=== PATIENT | female | born 1990 | race Two or more races ===

== ENCOUNTER 2017-02-14 21:26 | Emergency (ER) | payer SELFPAY ==
[~2017-02-14] VITALS: Ht 160 cm; Wt 79.4 kg
[2017-02-14 22:18] LABS: BASO # 0.1 x10^3/uL (0.0-0.2); BASO % 1 % (0-3); EOS % 1 % (0-3); HEMATOCRIT 39.2 % (36.0-47.0); HEMOGLOBIN 13.2 g/dL (12.0-15.5); LYMPH # 2.7 x10^3/uL (1.0-4.8); LYMPH % 22 % (24-48); MEAN CORPUSCULAR HEMOGLOBIN 31 pg (25-35); MEAN CORPUSCULAR HGB CONC 34 g/dL (31-37); MEAN CORPUSCULAR VOLUME 91 fL (79-100); MONO % 7 % (0-9); NEUT % 70 % (31-73); PLATELET COUNT 330 x10^3/uL (140-400); RED CELL DISTRIBUTION WIDTH 12.9 % (11.5-14.5); WHITE BLOOD COUNT 12.5 x10^3/uL (4.0-11.0)
[2017-02-14 22:27] LABS: CALCIUM 8.9 mg/dL (8.5-10.1); CREATININE 0.8 mg/dL (0.6-1.0); POTASSIUM 3.7 mmol/L (3.5-5.1)
[2017-02-14] MEDS ORDERED: IV NORMAL SALINE 1000ML BAG 1,000 ML IV ONE (22:30)
[2017-02-14] MEDS ORDERED: METOCLOPRAMIDE HCL 10 MG/2 ML VIAL. IV ONE (22:30)
[2017-02-14 22:40] VITALS: BP 113/71
--- NOTE | 2017-02-14 22:58 | RAD ---
EXAM: Obstetrics sonogram. HISTORY: Pain. TECHNIQUE: Sonographic imaging of the pelvis was performed. COMPARISON: None. FINDINGS: The uterus measures 9.6 x 5.6 x 4.4 cm. The endometrial stripe measures 12 abdomen thickness. No intrauterine gestational sac is seen. The right ovary measures 4.1 x 3.7 x 2.9 cm. The left ovary measures 2.7 x 1.9 x 1.1 cm. There is normal blood flow within both ovaries. There are multiple ovarian follicles. There is a complex right ovarian cyst measuring 2.1 cm. There is a simple right ovarian follicular cyst measuring 1.5 cm. There is no pelvic free fluid. IMPRESSION: 1. No evidence of an intrauterine gestational sac. Correlate with beta hCG levels. If the beta-hCG levels are within limits for expected sonographic identification of a gestational sac, the possibility of an ectopic gestation is not excluded. Alternatively, if the beta-hCG levels are low but increasing appropriately, the absence of a gestational sac on the current exam is likely due to relatively early gestation. 2. 2.1 cm complex right ovarian cyst and 1.5 cm simple appearing right ovarian follicular cyst. Electronically signed by: Dot Stovall MD (02/14/2017 10:55 PM) [facility]
[2017-02-14 23:13] LABS: BILIRUBIN,URINE NEGATIVE (NEG); GLUCOSE,URINE NEGATIVE (NEG); NITRITE,URINE NEGATIVE (NEG); PH,URINE 7.5; PROTEIN,URINE NEGATIVE (NEG-TRACE)
[2017-02-14 23:20] LABS: BACTERIA,URINE 0 /HPF (0-FEW); RBC,URINE OCC /HPF (0-2); SQUAMOUS EPITHELIAL CELL,UR MOD /LPF; WBC,URINE 0 /HPF (0-4)
--- NOTE | 2017-02-14 23:25 | PHYS DOC ---
Past Medical History Past Medical History: No Pertinent History Past Surgical History: No Surgical History Alcohol Use: Occasionally Drug Use: None Adult General Chief Complaint Chief Complaint: ABDOMINAL PAIN IN HPI HPI Patient is a 26 year old female who presents with abdominal pain and . Patient is at 4w3d by dates, positive test at home yesterday. She reports onset of cramping lower abdominal pain yesterday associated with vaginal discharge. Was nauseated without vomiting. Denies fevers or chills, diarrhea or constipation, dysuria or hematuria, vaginal bleeding. Denies concern for sexually transmitted infection. She does not have an OB physician at this time. She is Lithuanian-speaking; history obtained with assistance from Lithuanian language line fur joiner. Review of Systems Review of Systems Constitutional: Denies fever or chills HENT: Denies nasal congestion or sore throat Respiratory: Denies cough or shortness of breath Cardiovascular: Denies chest pain or edema GI: Reports abdominal pain, nausea, vomiting, denies bloody stools or diarrhea : Denies dysuria or hematuria Musculoskeletal: Denies back pain or joint pain Integument: Denies rash or skin lesions Neurologic: Denies headache All other systems were reviewed and found to be within normal limits, except as documented in this note. Current Medications Current Medications Current Medications Medications (Trade) Dose Ordered Sig/Jayda Start Time Stop Time Status Last Admin Dose Admin Metoclopramide HCl (Reglan Vial) 10 mg 1X ONCE 02/14/17 22:30 02/14/17 22:31 DC 02/14/17 22:28 10 MG Sodium Chloride 1,000 ml @ 1,000 mls/hr 1X ONCE 02/14/17 22:30 02/14/17 23:29 DC 02/14/17 22:28 1,000 MLS/HR Allergies Allergies Allergies Coded Allergies Type Severity Reaction Last Updated Verified No Known Drug Allergies 02/14/17 No Physical Exam Physical Exam Constitutional: obese, no acute distress, non-toxic appearance. HENT: Normocephalic, atraumatic, bilateral external ears normal, oropharynx moist, nose normal. Eyes: conjunctiva normal, no discharge. Neck: supple, no stridor. Cardiovascular: RRR, no murmurs, no edema. Lungs & Thorax: LCTAB, no wheezing, no respiratory distress. Abdomen: soft, mild suprapubic tenderness without rebound/guarding, no masses or pulsatile masses, nondistended. : normal appearing female external genitalia, normal cervix with closed os, small amount of white discharge in vaginal vault, no CMT/adnexal tenderness. Skin: Warm, dry, no erythema, no rash. Back: No CVA tenderness. Extremities: No tenderness, no edema. Neurologic: Alert and oriented X 3, no focal deficits noted. Psychologic: Affect normal, judgement normal, mood normal. Current Patient Data Vital Signs Vital Signs Date Time Temp Pulse Resp B/P (MAP) Pulse Ox O2 Delivery O2 Flow Rate FiO2 02/14/17 22:40 106 113/71 (85) 97 Room Air 02/14/17 21:40 98.8 20 98.8 Lab Values Laboratory Tests Test 02/14/17 21:28 02/14/17 21:57 02/14/17 22:05 Urine Collection Type Unknown Urine Color Yellow Urine Clarity Clear Urine pH 7.5 Urine Specific [place] 1.020 Urine Protein Negative mg/dL (NEG-TRACE) Urine Glucose (UA) Negative mg/dL (NEG) Urine Ketones (Stick) Negative mg/dL (NEG) Urine Blood Negative (NEG) Urine Nitrite Negative (NEG) Urine Bilirubin Negative (NEG) Urine Urobilinogen Dipstick 1.0 mg/dL (0.2 mg/dL) Urine Leukocyte Esterase Negative (NEG) Urine RBC Occ /HPF (0-2) Urine WBC 0 /HPF (0-4) Urine Squamous Epithelial Cells Mod /LPF Urine Bacteria 0 /HPF (0-FEW) POC Urine HCG, Qualitative Hcg positive (Negative) White Blood Count 12.5 x10^3/uL (4.0-11.0) H Red Blood Count 4.30 x10^6/uL (3.50-5.40) Hemoglobin 13.2 g/dL (12.0-15.5) Hematocrit 39.2 % (36.0-47.0) Mean Corpuscular Volume 91 fL (79-100) Mean Corpuscular Hemoglobin 31 pg (25-35) Mean Corpuscular Hemoglobin Concent 34 g/dL (31-37) Red Cell Distribution Width 12.9 % (11.5-14.5) Platelet Count 330 x10^3/uL (140-400) Neutrophils (%) (Auto) 70 % (31-73) Lymphocytes (%) (Auto) 22 % (24-48) L Monocytes (%) (Auto) 7 % (0-9) Eosinophils (%) (Auto) 1 % (0-3) Basophils (%) (Auto) 1 % (0-3) Neutrophils # (Auto) 8.7 x10^3uL (1.8-7.7) H Lymphocytes # (Auto) 2.7 x10^3/uL (1.0-4.8) Monocytes # (Auto) 0.8 x10^3/uL (0.0-1.1) Eosinophils # (Auto) 0.1 x10^3/uL (0.0-0.7) Basophils # (Auto) 0.1 x10^3/uL (0.0-0.2) Maternal Serum HCG Beta Subunit 160 mIU/mL (0-5) H Sodium Level 136 mmol/L (136-145) Potassium Level 3.7 mmol/L (3.5-5.1) Chloride Level 103 mmol/L (98-107) Carbon Dioxide Level 25 mmol/L (21-32) Anion Gap 8 (6-14) Blood Urea Nitrogen 14 mg/dL (7-20) Creatinine 0.8 mg/dL (0.6-1.0) Estimated GFR (Cockcroft-Gault) 86.0 Glucose Level 106 mg/dL (70-99) H Calcium Level 8.9 mg/dL (8.5-10.1) Laboratory Tests 02/14/17 22:05 Laboratory Tests 02/14/17 22:05 Microbiology 02/14/17 Wet Prep - Final, Complete EKG EKG [] Radiology/Procedures Radiology/Procedures PROCEDURE: OB < 14 WKS EXAM: Obstetrics sonogram. HISTORY: Pain. TECHNIQUE: Sonographic imaging of the pelvis was performed. COMPARISON: None. FINDINGS: The uterus measures 9.6 x 5.6 x 4.4 cm. The endometrial stripe measures 12 abdomen thickness. No intrauterine gestational sac is seen. The right ovary measures 4.1 x 3.7 x 2.9 cm. The left ovary measures 2.7 x 1.9 x 1.1 cm. There is normal blood flow within both ovaries. There are multiple ovarian follicles. There is a complex right ovarian cyst measuring 2.1 cm. There is a simple right ovarian follicular cyst measuring 1.5 cm. There is no pelvic free fluid. IMPRESSION: 1. No evidence of an intrauterine gestational sac. Correlate with beta hCG levels. If the beta-hCG levels are within limits for expected sonographic identification of a gestational sac, the possibility of an ectopic gestation is not excluded. Alternatively, if the beta-hCG levels are low but increasing appropriately, the absence of a gestational sac on the current exam is likely due to relatively early gestation. 2. 2.1 cm complex right ovarian cyst and 1.5 cm simple appearing right ovarian follicular cyst. Electronically signed by: Dot Mata MD (02/14/2017 10:55 PM) [facility] DICTATED and SIGNED BY: DOT MATA MD DATE: 02/14/172252[] Course & Med Decision Making Course & Med Decision Making Pertinent Labs and Imaging studies reviewed. (See chart for details) The patient presents with abdominal pain in very early . No reported bleeding, no blood seen on pelvic exam. Beta hCG is quite low, no gestational sac seen on ultrasound but also no evidence of ectopic . Discussed results with the patient at length via the fur joiner. Recommend follow-up with Dr. Gonzalez in the OB clinic in 2 days for repeat labs and possible repeat ultrasound. She is aware of the ectopic could be life-threatening condition and is very important to follow-up for additional evaluation as this condition cannot definitely be ruled out at this time. Instructed to maintain pelvic rest, take Tylenol as needed for pain. Return to the emergency department for high fever, severe pain, uncontrolled vomiting, vaginal hemorrhage requiring greater than 1 pad per hour, any otherwise worsening condition. Discharged home in stable condition. [] Dragon Disclaimer Dragon Disclaimer This electronic medical record was generated, in whole or in part, using a voice recognition dictation system. Departure Departure Impression: Primary Impression: Abdominal pain affecting Disposition: HOME, SELF-CARE Condition: STABLE Referrals: NO PCP (PCP) SMITA GONZALEZ Jr, MD Patient Instructions: Abdominal Pain During , [id number] Additional Instructions: You were seen in the emergency department today for abdominal pain in early . Your ultrasound did not yet show the baby or the gestational sac. Commonly this is because it is too early to see the baby. When we cannot see any sign of the baby in your uterus, there is a possibility that you could have an ectopic which means that the baby is developing somewhere besides your uterus which can be life-threatening. It is very very important to follow- up in the OB clinic in 2 days to have labs and possibly ultrasound repeated. Please make an appointment to be seen by Dr. Gonzalez in the OB clinic. You will need to tell them that you were seen in the ER today & you need to follow-up in 2 days. In the meantime, rest, drink fluids, take Tylenol for pain. Come back for high fever, severe pain, uncontrolled vomiting, heavy bleeding requiring more than 1 pad per hour, any otherwise worsening condition. WALTER JANE MD Feb 14, 2017 23:25
== END 2017-02-14 23:39 | disposition home or self-care (01) ==
LOC: ER 21:26
DX: O34.81 Maternal care for other abnormalities of pelvic organs, first trimester (principal); N83.201 Unspecified ovarian cyst, right side; Z3A.01 Less than 8 weeks gestation of pregnancy
CPT/HCPCS: 36415; 76801; 80048; 81001; 81025; 84702; 85025; 87491; 87591; 96361; 96374; 99285; J2765; J7030; Q0111

== ENCOUNTER 2017-09-30 14:35 | Observation (INO) | payer SELFPAY ==
[2017-09-30 15:20] LABS: BILIRUBIN,URINE NEGATIVE (NEG); CLARITY,URINE CLEAR; COLOR,URINE YELLOW; GLUCOSE,URINE NEGATIVE (NEG); NITRITE,URINE NEGATIVE (NEG); PROTEIN,URINE NEGATIVE (NEG-TRACE); UROBILINOGEN,URINE 0.2 mg/dL (0.2 mg/dL)
[2017-09-30] MEDS: hydrOXYzine IM 50 MG/ML VIAL IM (15:58)
== END 2017-09-30 16:10 | disposition home or self-care (01) ==
LOC: 3 SO LND 14:35
DX: O26.893 Other specified pregnancy related conditions, third trimester (principal); R10.9 Unspecified abdominal pain; Z3A.36 36 weeks gestation of pregnancy
CPT/HCPCS: 81003; 96372; G0378; G0379; J3410

== ENCOUNTER 2018-03-14 21:45 | Emergency (ER) | payer SELFPAY ==
[~2018-03-14] VITALS: Ht 157.5 cm; Wt 86.2 kg
[~2018-03-14 21:45] MED LIST: IBUP800T19 PO
[2018-03-14 22:33] LABS: BILIRUBIN,URINE NEGATIVE (NEG); CLARITY,URINE CLEAR; COLOR,URINE YELLOW; NITRITE,URINE NEGATIVE (NEG); PROTEIN,URINE NEGATIVE (NEG-TRACE)
[2018-03-14 22:38] LABS: BACTERIA,URINE FEW /HPF (0-FEW); RBC,URINE OCC /HPF (0-2); SQUAMOUS EPITHELIAL CELL,UR FEW /LPF; WBC,URINE RARE /HPF (0-4)
[2018-03-14 22:39] LABS: AMORPHOUS SEDIMENT,UR PRESENT /HPF
[2018-03-14 22:42] LABS: BASO % 0 % (0-3); EOS # 0.2 x10^3/uL (0.0-0.7); EOS % 2 % (0-3); LYMPH # 2.2 x10^3/uL (1.0-4.8); LYMPH % 22 % (24-48); MEAN CORPUSCULAR HEMOGLOBIN 32 pg (25-35); MEAN CORPUSCULAR HGB CONC 34 g/dL (31-37); MEAN CORPUSCULAR VOLUME 92 fL (79-100); MONO # 0.7 x10^3/uL (0.0-1.1); MONO % 7 % (0-9); NEUT # 6.6 x10^3uL (1.8-7.7); NEUT % 68 % (31-73); PLATELET COUNT 294 x10^3/uL (140-400); RED BLOOD COUNT 4.12 x10^6/uL (3.50-5.40); WHITE BLOOD COUNT 9.7 x10^3/uL (4.0-11.0)
--- NOTE | 2018-03-14 22:46 | PHYS DOC ---
Past Medical History Past Medical History: No Pertinent History Past Surgical History: No Surgical History Alcohol Use: None Drug Use: None Adult General Chief Complaint Chief Complaint: VAGINAL BLEEDING HPI HPI Patient is a 27 year old female who presents with vaginal bleeding. She is noted approximately 3 days of lower abdominal pain and cramping. Had some spotting this evening. Less than 1 tampon or pad's worth. Patient is approximately 12 weeks having her last menstrual period on 12/15/2017. Patient's last /delivery was 10/21/2017. She was A+ at that time for her blood type. Nothing makes the pain or the bleeding any better or worse. Pain is mild. No significant relief with Tylenol. Patient is pending her first TYPE PHOTOGRAPHY SUPERVISOR appointment. Patient is 4 para 3 [] Review of Systems Review of Systems Constitutional: Denies fever or chills [] Eyes: Denies change in visual acuity, redness, or eye pain [] HENT: Denies nasal congestion or sore throat [] Respiratory: Denies cough or shortness of breath [] Cardiovascular: No chest pain or palpitations[] GI: Denies nausea, vomiting, bloody stools or diarrhea [] : Denies dysuria or hematuria [] Musculoskeletal: Denies back pain or joint pain [] Integument: Denies rash or skin lesions [] Neurologic: Denies headache, focal weakness or sensory changes [] Endocrine: Denies polyuria or polydipsia [] All other systems were reviewed and found to be within normal limits, except as documented in this note. Allergies Allergies Allergies Coded Allergies Type Severity Reaction Last Updated Verified No Known Drug Allergies 02/14/17 No Physical Exam Physical Exam Constitutional: Well developed, well nourished, no acute distress, non-toxic appearance. [] HENT: Normocephalic, atraumatic, bilateral external ears normal, oropharynx moist, no oral exudates, nose normal. [] Eyes: PERRLA, EOMI, conjunctiva normal, no discharge. [] Neck: Normal range of motion, no tenderness, supple, no stridor. [] Cardiovascular:Heart rate regular rhythm, no murmur [] Lungs & Thorax: Bilateral breath sounds clear to auscultation [] Abdomen: Bowel sounds normal, soft, no tenderness, no masses, no pulsatile masses. Health exam: External genitalia: Normal. Vaginal vault: Dark blood in the vault , small amount. No other discharge noted. Cervix:parous os, no CMT, no active bleeding[] Skin: Warm, dry, no erythema, no rash. No bruising [] Back: No tenderness, no CVA tenderness. [] Extremities: No tenderness, no cyanosis, no clubbing, ROM intact, no edema. [] Neurologic: Alert and oriented X 3, normal motor function, normal sensory function, no focal deficits noted. [] Psychologic: Affect normal, judgement normal, mood normal. [] Current Patient Data Vital Signs Vital Signs Date Time Temp Pulse Resp B/P (MAP) Pulse Ox O2 Delivery O2 Flow Rate FiO2 03/14/18 22:15 98.6 100 18 144/64 (90) 99 Room Air 98.6 Lab Values Laboratory Tests Test 03/14/18 22:05 03/14/18 22:14 03/14/18 22:35 Urine Collection Type Unknown Urine Color Yellow Urine Clarity Clear Urine pH 7.0 Urine Specific [place] 1.025 Urine Protein Negative mg/dL (NEG-TRACE) Urine Glucose (UA) Negative mg/dL (NEG) Urine Ketones (Stick) Negative mg/dL (NEG) Urine Blood Trace (NEG) Urine Nitrite Negative (NEG) Urine Bilirubin Negative (NEG) Urine Urobilinogen Dipstick 1.0 mg/dL (0.2 mg/dL) Urine Leukocyte Esterase Negative (NEG) Urine RBC Occ /HPF (0-2) Urine WBC Rare /HPF (0-4) Urine Squamous Epithelial Cells Few /LPF Urine Calcium Phosphate Crystals /HPF Urine Amorphous Sediment Present /HPF Urine Bacteria Few /HPF (0-FEW) Urine Mucus Slight /LPF POC Urine HCG, Qualitative Hcg positive (Negative) White Blood Count 9.7 x10^3/uL (4.0-11.0) Red Blood Count 4.12 x10^6/uL (3.50-5.40) Hemoglobin 13.0 g/dL (12.0-15.5) Hematocrit 38.0 % (36.0-47.0) Mean Corpuscular Volume 92 fL (79-100) Mean Corpuscular Hemoglobin 32 pg (25-35) Mean Corpuscular Hemoglobin Concent 34 g/dL (31-37) Red Cell Distribution Width 12.0 % (11.5-14.5) Platelet Count 294 x10^3/uL (140-400) Neutrophils (%) (Auto) 68 % (31-73) Lymphocytes (%) (Auto) 22 % (24-48) L Monocytes (%) (Auto) 7 % (0-9) Eosinophils (%) (Auto) 2 % (0-3) Basophils (%) (Auto) 0 % (0-3) Neutrophils # (Auto) 6.6 x10^3uL (1.8-7.7) Lymphocytes # (Auto) 2.2 x10^3/uL (1.0-4.8) Monocytes # (Auto) 0.7 x10^3/uL (0.0-1.1) Eosinophils # (Auto) 0.2 x10^3/uL (0.0-0.7) Basophils # (Auto) 0.0 x10^3/uL (0.0-0.2) Prothrombin Time 12.9 SEC (11.7-14.0) Prothrombin Time INR 1.0 (0.8-1.1) Maternal Serum HCG Beta Subunit 07263 mIU/mL (0-5) H Sodium Level 138 mmol/L (136-145) Potassium Level 3.7 mmol/L (3.5-5.1) Chloride Level 101 mmol/L (98-107) Carbon Dioxide Level 25 mmol/L (21-32) Anion Gap 12 (6-14) Blood Urea Nitrogen 7 mg/dL (7-20) Creatinine 0.9 mg/dL (0.6-1.0) Estimated GFR (Cockcroft-Gault) 74.6 BUN/Creatinine Ratio 8 (6-20) Glucose Level 95 mg/dL (70-99) Calcium Level 9.3 mg/dL (8.5-10.1) Total Bilirubin 0.2 mg/dL (0.2-1.0) Aspartate Amino Transferase (AST) 16 U/L (15-37) Alanine Aminotransferase (ALT) 20 U/L (14-59) Alkaline Phosphatase 127 U/L (46-116) H Total Protein 7.9 g/dL (6.4-8.2) Albumin 3.0 g/dL (3.4-5.0) L Albumin/Globulin Ratio 0.6 (1.0-1.7) L Laboratory Tests 12/24/18 22:35 Laboratory Tests 03/14/18 22:35 Microbiology 03/14/18 Wet Prep - Final, Complete EKG EKG [] Radiology/Procedures Radiology/Procedures Pelvic Ultrasound FINDINGS: Uterus: 110 x 78 x 77 mm. Intrauterine gestational sac is identified with a pole with a positive heartbeat of 168 bpm. Too early in to adequately assess placenta. Gestational sac unremarkable in appearance. Right Ovary: 29 x 27 x 25 mm. Left Ovary: 28 x 18 x 18 mm. Vascular flow identified to bilateral ovaries. IMPRESSION: 1. Intrauterine is identified with estimated gestational age of 11 weeks and 6 days with estimated due date of September 27, 2018 and a positive heartbeat. Recommend routine anomaly screening at 18-22 weeks.[] Course & Med Decision Making Course & Med Decision Making Pertinent Labs and Imaging studies reviewed. (See chart for details) ED course: Patient arrived, was placed in bed, tolerated exam well. Patient had ultrasound performed with ankle medications. After return of lab and imaging findings these were discussed with the patient and family voiced understanding. All questions were answered. Medical decision making: This does not appear to be a ectopic , no heterotopic , no septic miscarriage, no urinary tract infection. No evidence of PID on exam.[] Dragon Disclaimer Dragon Disclaimer This electronic medical record was generated, in whole or in part, using a voice recognition dictation system. Departure Departure Impression: Primary Impression: Threatened miscarriage Disposition: HOME, SELF-CARE Condition: GOOD Referrals: NO PCP (PCP) Patient Instructions: Threatened Miscarriage Additional Instructions: Follow-up with your TYPE PHOTOGRAPHY SUPERVISOR in 2 days. Nothing in the vaginano tampons, no douching, no sexual intercourse until evaluated by her TYPE PHOTOGR[employer]HY SUPERVISOR physician. Return to the ER if worsening bleeding or any other concerns. SHAHEEN SOLANO DO Mar 14, 2018 22:46
[2018-03-14 22:50] LABS: CALCIUM 9.3 mg/dL (8.5-10.1); CREATININE 0.9 mg/dL (0.6-1.0); GFR 74.6; POTASSIUM 3.7 mmol/L (3.5-5.1)
[2018-03-14 22:51] LABS: PROTHROMBIN TIME PATIENT 12.9 SEC (11.7-14.0)
[2018-03-14 22:57] LABS: ALBUMIN/GLOBULIN RATIO 0.6 (1.0-1.7); TOTAL BILIRUBIN 0.2 mg/dL (0.2-1.0); TOTAL PROTEIN 7.9 g/dL (6.4-8.2)
--- NOTE | 2018-03-14 23:11 | RAD ---
INDICATION: SPOTTING, COMPARISON: None. TECHNIQUE: Grayscale and color ultrasound images uterus and adnexa. FINDINGS: Uterus: 110 x 78 x 77 mm. Intrauterine gestational sac is identified with a pole with a positive heartbeat of 168 bpm. Too early in to adequately assess placenta. Gestational sac unremarkable in appearance. Right Ovary: 29 x 27 x 25 mm. Left Ovary: 28 x 18 x 18 mm. Vascular flow identified to bilateral ovaries. IMPRESSION: 1. Intrauterine is identified with estimated gestational age of 11 weeks and 6 days with estimated due date of September 27, 2018 and a positive heartbeat. Recommend routine anomaly screening at 18-22 weeks. Electronically signed by: Jay Guallpa MD (03/14/2018 11:07 PM) [facility]
[2018-03-15] VITALS: BP 126/84
[2018-03-17 20:10] LABS: GC PROBE Negative (Negative)
== END 2018-03-15 00:36 | disposition home or self-care (01) ==
LOC: ER 21:53
DX: O20.0 Threatened abortion (principal); Z3A.11 11 weeks gestation of pregnancy
CPT/HCPCS: 36415; 76801; 80053; 81001; 81025; 84702; 85025; 85610; 87491; 87591; 99284; Q0111